=== PATIENT | male | born 1980 | race American Indian/Alaskan Native ===

== ENCOUNTER 2017-03-13 13:38 | Emergency (ER) | payer MEDICARE ==
--- NOTE | 2017-03-13 18:19 | Emergency Department Report ---
ED General Adult HPI - General Chief complaint: Medical Clearance Stated complaint: HIGH BP Time Seen by Provider: 03/13/17 17:50 Source: family Mode of arrival: Wheelchair Limitations: Language Barrier, Physical Limitation - History of Present Illness Initial comments: 36-year-old male past medical history cerebral palsy brought in by father from adult daycare for complaint of high blood pressure. As per patient's father blood pressure was checked in adult daycare and was in the 140s systolic over 100 diastolic. [facility] patient was sent to the ER for evaluation. As per patient's father he is in usual state of behavior no overt changes in behavior no recent trauma or falls. Patient is nonverbal, chronic spasticity and contractions, wheelchair bound and bed bound due to cerebral palsy. No recent illnesses as per father who is a direct drying can worker and lives with him. As per patient's father he has not had a high blood pressure in the past but at last office visit with primary doctor 3 months ago patient had let pressure of 130s systolic as per father. Not currently on any blood pressure medicine -: This morning - Related Data Allergies Allergy/AdvReac Type Severity Reaction Status Date / Time No Known Allergies Allergy Unverified 03/13/17 15:52 ED Review of Systems ROS: Stated complaint: HIGH BP Other details as noted in HPI Constitutional: denies: chills, fever Eyes: denies: eye pain, eye discharge, vision change ENT: denies: ear pain, throat pain Respiratory: denies: cough, shortness of breath, wheezing Cardiovascular: denies: chest pain, palpitations Endocrine: no symptoms reported Gastrointestinal: denies: abdominal pain, nausea, diarrhea Genitourinary: denies: urgency, dysuria Musculoskeletal: denies: back pain, joint swelling, arthralgia Skin: denies: rash, lesions Neurological: denies: headache, weakness, paresthesias Psychiatric: denies: anxiety, depression Hematological/Lymphatic: denies: easy bleeding, easy bruising ED Past Medical Hx - Past Medical History Additional medical history: Cerebral Palsy - Surgical History Past Surgical History?: No - Social History Smoking Status: Never Smoker Substance Use Type: None ED Physical Exam - General Limitations: Language Barrier, Physical Limitation General appearance: alert, in no apparent distress - Head Head exam: Present: atraumatic, normocephalic - Eye Eye exam: Present: normal appearance, PERRL, EOMI - ENT ENT exam: Present: mucous membranes moist - Neck Neck exam: Present: normal inspection, full ROM - Respiratory Respiratory exam: Present: normal lung sounds bilaterally. Absent: respiratory distress - Cardiovascular Cardiovascular Exam: Present: regular rate, normal rhythm. Absent: systolic murmur, diastolic murmur, rubs, gallop - GI/Abdominal GI/Abdominal exam: Present: soft, normal bowel sounds - Rectal Rectal exam: Present: deferred - Extremities Exam Extremities exam: Present: other (chronic upper and lower extremity muscle spasticity secondary to cerebral palsy. I inspected patient's scrotal and buttock region to inspect for any ulcers, no visible pressure ulcers on exam) - Back Exam Back exam: Present: normal inspection - Neurological Exam Neurological exam: Present: alert, oriented X3 - Psychiatric Psychiatric exam: Present: normal affect, normal mood - Skin Skin exam: Present: warm, dry, intact, normal color. Absent: rash ED Course Vital Signs 03/13/17 03/13/17 15:42 18:19 Temperature 97.8 F Pulse Rate 75 94 H Respiratory 20 18 Rate Blood Pressure 148/104 Blood Pressure 138/90 [Left] Blood Pressure 143/94 [Right] O2 Sat by Pulse 100 99 Oximetry ED Medical Decision Making - Medical Decision Making A/P: Asymptomatic high blood pressure 1-I rechecked the patient's blood pressure in both arms, 143/94 left arm, 138/ 98 right arm, heart rate 90 2-patient is in baseline state of behavior as per father 3-father states that he has a primary care appointment follow-up for this Monday with patient's primary care doctor as patient's blood pressure is not significantly elevated at this time I will not start patient on a therapeutic agent but I did advise father to reduce the level of sodium in his diet and to have his blood pressure rechecked and if it remains consistently high to discuss antihypertensive medication with his primary doctor. Patient's father who is his drying can worker is in agreement with this plan Critical care attestation.: If time is entered above; I have spent that time in minutes in the direct care of this critically ill patient, excluding procedure time. ED Disposition Clinical Impression: Asymptomatic hypertension Disposition: TO HOME OR SELFCARE Is pt being admited?: No Does the pt Need Aspirin: No Condition: Stable Instructions: Hypertension (ED), Low Sodium Diet (ED) Additional Instructions: BP 143/98 LA, 138/90 RA, HR 90, o2 sat 99% on RA, RR 18, T 98.6 Please recheck patient's blood pressure and primary care office and discuss utility of starting a antihypertensive agent with primary care doctor. Referrals: HOOD GRANT MD [Staff Physician] - 3-5 Days Forms: Work/School Release Form(ED)
[2017-03-13 18:20] VITALS: BP 138/90
== END 2017-03-13 18:29 | disposition home or self-care (01) ==
LOC: ED 13:38
DX: I10 Essential (primary) hypertension (principal)
CPT/HCPCS: 99282